=== PATIENT | male | born 1935 | race Caucasian/White ===

== ENCOUNTER 2019-08-18 12:56 | Inpatient (IN) | payer OTHER, MEDICARE ==
[2019-08-18] MEDS ORDERED: NA CHLORIDE 0.9% 500 ML ONE ×2 (13:22→14:38)
--- NOTE | 2019-08-18 13:26 | RAD REPORT ---
EXAM DESCRIPTION: CT - Head Brain Wo Cont - 08/18/2019 1:17 pm CLINICAL HISTORY: Syncope COMPARISON: None. TECHNIQUE: Computed axial tomography of the head was obtained. IV contrast was not requested. All CT scans are performed using dose optimization technique as appropriate and may include automated exposure control or mA/KV adjustment according to patient size. FINDINGS: An intracranial bleed is not seen . The ventricles are normal in caliber. No extra-axial fluid collection is noted. Fluid within the sinuses/ mastoids is not seen. IMPRESSION: No acute intracranial abnormality is seen. If patient's symptoms persist MRI of the bra in would be recommended.
[2019-08-18 13:34] LABS: Absolute Lymphocytes (CBC) 1.3 K/uL (0.7-4.9); Basophils % 0.3 % (0-1.3); Hematocrit 33.9 % (39.6-49.0); MPV 8.4 fL (7.6-11.3); RBC Red Blood Cell Count 3.61 M/uL (4.33-5.43)
[2019-08-18 13:38] LABS: Protime INR 1.07
[2019-08-18 13:49] LABS: Potassium 5.3 mmol/L (3.5-5.1); Thyroid Stimulating Hormone 2.21 uIU/mL (0.360-3.740); Troponin (Emerg Dept Use Only) 0.06 ng/mL (0.0-0.045)
--- NOTE | 2019-08-18 14:08 | ER ---
Nurse's Notes [facility] Name: Koffi Ivory Age: 84 yrs Sex: Male : 1935 Arrival Date: 08/18/2019 Time: 12:58 Bed 2 Private MD: Diagnosis: Bradycardia, unspecified;Syncope and collapse Presentation: 08/18 13:06 Acuity: JES 2 hb 13:06 Presenting complaint: EMS states: pt called due to feeling dizzy this morning, BP on jl7 arrival was 83/49, HR was 29. Transition of care: patient was not received from another setting of care. Onset of symptoms was August 18, 2019. Risk Assessment: Do you want to hurt yourself or someone else? Patient reports no desire to harm self or others. Initial Sepsis Screen: Does the patient meet any 2 criteria? No. Patient's initial sepsis screen is negative. Does the patient have a suspected source of infection? No. Patient's initial sepsis screen is negative. Care prior to arrival: Medication(s) given: Normal saline infusion, 300 mL IV initiated. 20 GA, in the left antecubital area, Glucose check: 275. 13:06 Method Of Arrival: EMS: [facility] jl7 Historical: - Allergies: 13:10 No Known Allergies; jl7 - Home Meds: 13:33 Novolog Sub-Q [Active]; Quinapril HCl Oral [Active]; Tramadol Oral [Active]; tamsulosin jl7 oral oral [Active]; - PMHx: 13:33 Hypertension; Diabetes - IDDM; BPH; jl7 - Immunization history:: Adult Immunizations up to date. - Social history:: Smoking status: Patient/guardian denies using tobacco. - Ebola Screening: : No symptoms or risks identified at this time. - Family history:: not pertinent. - Hospitalizations: : No recent hospitalization is reported. Screenin:00 Abuse screen: Denies threats or abuse. Denies injuries from another. Nutritional jl7 screening: No deficits noted. Tuberculosis screening: No symptoms or risk factors identified. Fall Risk IV access (20 points). Total Toussaint Fall Scale indicates No Risk (0-24 pts). Assessment: 13:00 General: Appears in no apparent distress. uncomfortable, Behavior is calm, cooperative, jl7 appropriate for age. Pain: Denies pain. Neuro: Level of Consciousness is awake, alert, obeys commands, Oriented to person, place, time, situation. Cardiovascular: Patient's skin is warm and dry. Rhythm is sinus bradycardia. Respiratory: Airway is patent Respiratory effort is even, unlabored, Respiratory pattern is regular, symmetrical. GI: No signs and/or symptoms were reported involving the gastrointestinal system. Abdomen is non-distended. : No signs and/or symptoms were reported regarding the genitourinary system. EENT: No signs and/or symptoms were reported regarding the EENT system. Derm: Skin is pink, warm \T\ dry. 14:00 Reassessment: Patient appears in no apparent distress at this time. No changes from jl7 previously documented assessment. Patient and/or family updated on plan of care and expected duration. Pain level reassessed. Patient is alert, oriented x 3, equal unlabored respirations, skin warm/dry/pink. 15:00 Reassessment: Patient appears in no apparent distress at this time. No changes from jl7 previously documented assessment. Patient and/or family updated on plan of care and expected duration. Pain level reassessed. Patient is alert, oriented x 3, equal unlabored respirations, skin warm/dry/pink. Vital Signs: 13:04 BP 108 / 49; Pulse 34; Resp 14; Temp 98.2; Pulse Ox 98% ; Pain 0/10; hb 13:30 BP 120 / 61; Pulse 40; Resp 14 S; Pulse Ox 100% on R/A; jl7 14:10 BP 121 / 43; Pulse 43; Resp 16 S; Pulse Ox 100% on R/A; jl7 14:41 BP 123 / 58; Pulse 49; Resp 14; Pulse Ox 100% on R/A; jl7 15:18 BP 132 / 53; Pulse 51; Resp 16 S; Pulse Ox 100% on R/A; jl7 16:00 BP 139 / 59; Pulse 49; Resp 16 S; Pulse Ox 100% on R/A; jl7 16:30 BP 160 / 63; Pulse 52; Resp 16 S; Pulse Ox 100% on R/A; jl7 17:08 BP 144 / 63; Pulse 54; Resp 16 S; Pulse Ox 100% on R/A; jl7 ED Course: 12:58 Patient arrived in ED. rn 12:58 Con Payne MD is Attending Physician. rn 13:00 Patient has correct armband on for positive identification. Bed in low position. Call jl7 light in reach. Side rails up X 1. quality assurance monitor on. Pulse ox on. NIBP on. Warm blanket given. 13:00 Initial lab(s) drawn, by me, sent to lab. Inserted saline lock: 18 gauge in right jl7 forearm, using aseptic technique. Blood collected. 13:05 Johnnie Vaughan RN is Primary Nurse. jl7 13:05 Arm band placed on. hb 13:06 Triage completed. hb 13:21 CT Head Brain wo Cont In Process Unspecified. EDMS 14:07 Gerard Adams MD is Hospitalizing Provider. rn 14:08 XRAY Chest (1 view) In Process Unspecified. EDMS 17:09 No provider procedures requiring assistance completed. Patient admitted, IV remains in jl7 place. intact, No redness/swelling at site. Administered Medications: 13:27 Drug: NS 0.9% 500 ml Route: IV; Rate: bolus; Site: right antecubital; hb 14:15 Follow up: Response: No adverse reaction; IV Status: Completed infusion; IV Intake: jl7 500ml 14:15 Drug: Atropine 0.5 mg Route: IVP; Site: right forearm; jl7 14:41 Follow up: Response: No adverse reaction jl7 14:41 Drug: NS 0.9% 500 ml Route: IV; Rate: bolus; Site: right forearm; jl7 15:15 Follow up: IV Status: Completed infusion; IV Intake: 500ml jl7 14:41 Drug: Aspirin Chewable Tablet 324 mg Route: PO; jl7 15:00 Follow up: Response: No adverse reaction jl7 Intake: 14:15 IV: 500ml; Total: 500ml. jl7 15:15 IV: 500ml; Total: 1000ml. jl7 Outcome: 14:08 Decision to Hospitalize by Provider. rn 17:40 Admitted to Tele accompanied by tech, via wheelchair, room 426, with chart, Report jl7 called to SHEBA Jha 17:40 Condition: stable 17:40 Discharge instructions given to patient, Instructed on the need for admit, Demonstrated understanding of instructions. 17:41 Patient left the ED. jl7 Signatures: Dispatcher [employer] EDCon Gonzalez MD MD rn Baxter, Heather, RN RN hb Johnnie Vaughan, SHEBA RN jl7
--- NOTE | 2019-08-18 14:08 | EDPHYS ---
Physician Documentation [facility] Name: Koffi Ivory Age: 84 yrs Sex: Male : 1935 Arrival Date: 08/18/2019 Time: 12:58 Bed 2 Private MD: ED Physician Con Payne HPI: 08/18 14:01 This 84 yrs old Male presents to ER via EMS with complaints of syncope. rn 14:01 The patient has experienced syncope. Onset: The symptoms/episode began/occurred just rn prior to arrival. Duration: This was a single episode. Context: occurred at home, occurred while the patient was at rest, Just prior to the episode the patient experienced lightheadedness. Associated injury: The patient did not suffer any apparent associated injury. Current symptoms: Currently, the patient is not experiencing any symptoms. The patient has not experienced similar symptoms in the past. Reports had syncopal episode, at rest, feels generalized weakness. Reports last few weeks several episodes daily when has bilateral shoulder pain/discomfort, has to manager recovery and lasts for a few minutes. No trauma. No fever/vomiting/chest pain/sob. Per EMS, initial heart rate around 30, regular, and low BP, now improved with 500cc bolus. . Historical: - Allergies: 13:10 No Known Allergies; jl7 - Home Meds: 13:33 Novolog Sub-Q [Active]; Quinapril HCl Oral [Active]; Tramadol Oral [Active]; tamsulosin jl7 oral oral [Active]; - PMHx: 13:33 Hypertension; Diabetes - IDDM; BPH; jl7 - Immunization history:: Adult Immunizations up to date. - Social history:: Smoking status: Patient/guardian denies using tobacco. - Ebola Screening: : No symptoms or risks identified at this time. - Family history:: not pertinent. - Hospitalizations: : No recent hospitalization is reported. ROS: 14:02 Constitutional: Negative for fever, chills, and weight loss, Eyes: Negative for injury, rn pain, redness, and discharge, Neck: Negative for injury, pain, and swelling, Cardiovascular: Negative for chest pain, palpitations, and edema, Respiratory: Negative for shortness of breath, cough, wheezing, and pleuritic chest pain, Abdomen/GI: Negative for abdominal pain, nausea, vomiting, diarrhea, and constipation, MS/Extremity: Negative for injury and deformity, Skin: Negative for injury, rash, and discoloration, Neuro: Negative for headache, numbness, tingling, and seizure. Exam: 14:02 Constitutional: This is a well developed, well nourished patient who is awake, alert, rn and in no acute distress. Head/Face: Normocephalic, atraumatic. ENT: MMM Neck: Trachea midline, no thyromegaly or masses palpated, and no cervical lymphadenopathy. Supple, full range of motion without nuchal rigidity, or vertebral point tenderness. No Meningismus. Cardiovascular: Regular, bradycardic, no murmur Respiratory: No increased work of breathing, no retractions or nasal flaring. Abdomen/GI: soft, non-tender MS/ Extremity: Pulses equal, no cyanosis. Neurovascular intact. Full, normal range of motion. Equal circumference. Neuro: Awake and alert, GCS 15, oriented to person, place, time, and situation. Cranial nerves II-XII grossly intact. Motor strength 5/5 in all extremities. Sensory grossly intact. Cerebellar exam normal. Vital Signs: 13:04 BP 108 / 49; Pulse 34; Resp 14; Temp 98.2; Pulse Ox 98% ; Pain 0/10; hb 13:30 BP 120 / 61; Pulse 40; Resp 14 S; Pulse Ox 100% on R/A; jl7 14:10 BP 121 / 43; Pulse 43; Resp 16 S; Pulse Ox 100% on R/A; jl7 14:41 BP 123 / 58; Pulse 49; Resp 14; Pulse Ox 100% on R/A; jl7 15:18 BP 132 / 53; Pulse 51; Resp 16 S; Pulse Ox 100% on R/A; jl7 16:00 BP 139 / 59; Pulse 49; Resp 16 S; Pulse Ox 100% on R/A; jl7 16:30 BP 160 / 63; Pulse 52; Resp 16 S; Pulse Ox 100% on R/A; jl7 17:08 BP 144 / 63; Pulse 54; Resp 16 S; Pulse Ox 100% on R/A; jl7 MDM: 12:58 Patient medically screened. rn 14:02 Differential Diagnosis: cardiac arrhythmia, idiopathic syncope, vasovagal episode. Data rn reviewed: vital signs, nurses notes, lab test result(s), EKG, radiologic studies, CT scan, plain films, and as a result, I will admit patient. Counseling: I had a detailed discussion with the patient and/or guardian regarding: the historical points, exam findings, and any diagnostic results supporting the discharge/admit diagnosis, lab results, radiology results, the need for further work-up and treatment in the hospital. Response to treatment: the patient's symptoms have markedly improved after treatment, the patient is now symptom free, and as a result, I will discharge patient. ED course: Pt asymptomatic, sitting upright and smiling/having conversation with family. Will admit for syncope and bradycardia. No pauses/blocks on ECG that warrants immediate pacemaker, asymptomatic and steady in 40s. Has all of his meds in baggies unlabeled, unsure if medication induced, will put in for further eval, serial trop, cardiology consult and medication reconciliation to Dr. Adams. . 08/18 12:59 Order name: Magnesium; Complete Time: 13:55 rn 08/18 12:59 Order name: Basic Metabolic Panel; Complete Time: 13:55 rn 08/18 12:59 Order name: CBC with Diff; Complete Time: 13:47 rn 08/18 12:59 Order name: NT PRO-BNP; Complete Time: 13:55 rn 08/18 12:59 Order name: Troponin (emerg Dept Use Only); Complete Time: 13:55 rn 08/18 12:59 Order name: TSH; Complete Time: 13:55 rn 08/18 13:08 Order name: PT-INR; Complete Time: 13:55 rn 08/18 13:08 Order name: Ptt, Activated; Complete Time: 13:55 rn 08/18 15:48 Order name: CBC with Automated Diff EDVT 08/18 15:48 Order name: CBC with Automated Diff EDMS 08/18 15:48 Order name: Comprehensive Metabolic Panel EDVT 08/18 15:48 Order name: Comprehensive Metabolic Panel EDVT 08/18 15:48 Order name: Troponin I EDVT 08/18 15:48 Order name: Troponin I EDVT 08/18 12:59 Order name: XRAY Chest (1 view); Complete Time: 14:31 rn 08/18 12:59 Order name: EKG; Complete Time: 13:01 rn 08/18 12:59 Order name: Cardiac monitoring; Complete Time: 13:08 rn 08/18 12:59 Order name: EKG - Nurse/Tech; Complete Time: 13:09 rn 08/18 12:59 Order name: IV Saline Lock; Complete Time: 13:10 rn 08/18 12:59 Order name: Labs collected and sent; Complete Time: 13:10 rn 08/18 12:59 Order name: O2 Per Protocol; Complete Time: 13:10 rn 08/18 12:59 Order name: CT Head Brain wo Cont; Complete Time: 13:47 rn 08/18 15:48 Order name: CONS Pharmacy Consult EDVT 08/18 15:48 Order name: Heart Healthy EDVT 08/18 15:48 Order name: Troponin I EDVT 08/18 15:48 Order name: Troponin I EDVT 08/18 12:59 Order name: O2 Sat Monitoring; Complete Time: 13:10 rn Administered Medications: 13:27 Drug: NS 0.9% 500 ml Route: IV; Rate: bolus; Site: right antecubital; hb 14:15 Follow up: Response: No adverse reaction; IV Status: Completed infusion; IV Intake: jl7 500ml 14:15 Drug: Atropine 0.5 mg Route: IVP; Site: right forearm; jl7 14:41 Follow up: Response: No adverse reaction jl7 14:41 Drug: NS 0.9% 500 ml Route: IV; Rate: bolus; Site: right forearm; jl7 15:15 Follow up: IV Status: Completed infusion; IV Intake: 500ml jl7 14:41 Drug: Aspirin Chewable Tablet 324 mg Route: PO; jl7 15:00 Follow up: Response: No adverse reaction jl7 Disposition: 08/18/19 14:08 Hospitalization ordered by Gerard Adams for Inpatient Admission. Preliminary diagnosis are Bradycardia, unspecified, Syncope and collapse. - Bed requested for Telemetry/MedSurg (Inpatient). - Status is Inpatient Admission. jl7 - Condition is Stable. - Problem is new. - Symptoms have improved. UTI on Admission? No Signatures: Dispatcher [employer] [facility] Marleny Vizcaino RN RN dw Nieto, Roman, MD MD rn Baxter, Heather, RN RN hb Leal, Jahala RN RN jl7 Corrections: (The following items were deleted from the chart) 14:04 14:01 Reports had syncopal episode, at rest, feels generalized weakness. . rn rn 16:58 14:08 Hospitalization Ordered by Gerard Adams MD for Inpatient Admission. Preliminary dw diagnosis is Bradycardia, unspecified; Syncope and collapse. Bed requested for Telemetry/MedSurg (Inpatient). Status is Inpatient Admission. Condition is Stable. Problem is new. Symptoms have improved. UTI on Admission? No. rn 17:41 16:58 08/18/2019 14:08 Hospitalization Ordered by Gerard Adams MD for Inpatient jl7 Admission. Preliminary diagnosis is Bradycardia, unspecified; Syncope and collapse. Bed requested for Telemetry/MedSurg (Inpatient). Status is Inpatient Admission. Condition is Stable. Problem is new. Symptoms have improved. UTI on Admission? No. dw
--- NOTE | 2019-08-18 14:12 | RAD REPORT ---
EXAM DESCRIPTION: Lisa Single View08/18/2019 1:59 pm CLINICAL HISTORY: Bradycardia COMPARISON: none FINDINGS: The lungs appear clear of acute infiltrate. The heart is normal size IMPRESSION: No acute abnormalities displayed
[2019-08-18] MEDS ORDERED: ATROPINE SULF 1 MG/10 ML SYR IV ONE (14:17)
[2019-08-18] MEDS ORDERED: ASPIRIN 81 MG CHEWABLE TABLET ONE (14:38)
[2019-08-18] MEDS ORDERED: ONDANSETRON 4 MG/2 ML VIAL IV PRN (15:43)
[2019-08-18] MEDS ORDERED: MORPHINE 2 MG/ML SYR IV PRN (15:43)
[2019-08-18] MEDS ORDERED: ALBUTEROL 2.5 MG/3 ML NEB SOL NEB PRN (15:43)
[2019-08-18] MEDS ORDERED: GLUCAGON 1 MG/VIAL IM PRN (15:47)
[2019-08-18] MEDS ORDERED: HYDRALAZINE HCL 20 MG/ML VIAL IV PRN (15:47)
[2019-08-18] MEDS ORDERED: D50W 25 GM/50 ML SYRINGE/VIAL IV PRN (15:47)
[2019-08-18] MEDS: NA CHLORIDE 0.9% 1,000 ML IV SCH ×2 (16:00→18:45)
--- NOTE | 2019-08-18 16:17 | EKG ---
Test Date: 2019-08-18 Test Time: 13:39:07 Rd Lab Technician: MEASUREMENT RESULTS: Intervals: Rate: 33 WY: 208 QRSD: 150 QT: 488 QTc: 361 [place]: P: W[place]: 208 QRS: -43 T: 41 INTERPRETIVE STATEMENTS: Marked sinus bradycardia Left axis deviation Left bundle branch block Abnormal ECG No previous ECG available for comparison Electronically Signed On 08-18-19 16:17:10 CURING PRESS OPERATOR by Deandre Quintana
--- NOTE | 2019-08-18 16:40 | P.PN ---
Date of Service: 08/18/19 pt with htn , dm , ckd on coreg admitted for near syncope with bradycardia down to 34 . HR improving now with IVF -seen by cardiology , plan for hold coreg , tele monitoring , IVF NS
[2019-08-18 18:13] VITALS: BMI 28.9
[2019-08-18] MEDS: INSULIN -REGULAR HUMAN 50 UNIT/0.5 ML ML SQ SCH ×2 (18:45→21:38)
--- NOTE | 2019-08-18 20:17 | CON ---
Chief Complaint: Dizziness. History Of Present Illness: Mr. Ivory is 84. He takes medicines for diabetes and blood pressure. Radha waller has never had a pacemaker, never had myocardial infarction, stroke, vascular disease, vascular inte rventions, stents, or heart surgery. He has not felt dizzy before. Apparently, his family believes he was told to stop taking carvedilol, a medicine he takes twice a day, but he is here from [place], no rmally lives in [place] and there may have been some confusion about medicines, but he insists he took carvedilol this morning and it was after that, that he started feeling dizzy. His heart rate was 34 with sinus bradycardia, but there is a borderline first-degree AV block and left bundle, so he trevor soriano has conduction system disease. Over the last few hours, his heart rate is picked up. It is now 50. It was 34 when he had his EKG earlier today. He has never used tobacco or alcohol or illegal d rugs. He has used some alcohol in moderation. Never tobacco. Physical Examination: General: He is alert, oriented, pleasant, not in distress. Lungs: Clear. Cardiac: Within normal limits, except for bradycardia. Abdomen: Soft. Extremities: No cyanosis, clubbing, or edema. Distal pulses palpable. Impression: The patient should no longer be on a beta-que. I believe he will eventually very li jessica require a pacemaker with all of his conduction system problems, but he should not be on beta-blo ckers, digoxin, diltiazem, verapamil, clonidine for certain. If his heart rate picks up and he has n o pauses overnight, he can be discharged and we can attribute his bradycardia and dizziness to the carvedilol, which apparently should have been s topped, but he took nonetheless. ARMANDO/RICK Voice ID: [id number] Report ID: [id number]
[2019-08-18] MEDS ORDERED: AMITRIPTYLINE 25 MG TAB PO SCH (21:00)
[2019-08-18] MEDS ORDERED: FAMOTIDINE 20 MG TAB PO SCH (21:00)
[2019-08-18 22:20] LABS: Urine Appearance CLEAR; Urine Bilirubin NEGATIVE (NEG); Urine Blood NEGATIVE (NEG); Urine Color YELLOW; Urine Glucose 3+ (NEG); Urine Protein NEGATIVE (NEG); Urine Urobilinogen 0.2 mg/dL (0.2-1.0)
[2019-08-18] MEDS ORDERED: GABAPENTIN 100 MG CAP PO ONE (22:25)
[2019-08-18 22:29] LABS: Urine Microscopic Reflex NO UMIC
[2019-08-18] MEDS ORDERED: TRAZODONE 50 MG TABLET PO ONE (22:30)
[2019-08-19] MEDS: ROPINIROLE HCL 1 MG TAB PO PRN ×2 (02:05→11:44)
--- NOTE | 2019-08-19 02:51 | HP ---
Date of Admission: 08/18/2019 Presenting Complaint: Syncope. History Of Present Illness: Mr. Cachorro Machuca is an 84-year-old male with history of hypert ension, diabetes mellitus type 2, relatively controlled, hyperlipidemia, who presented today after no ceasar with near-syncope while walking with his friend. The patient did not have any fall. He was able to lie himself to the ground. He denies any nausea, vomiting, or chest pain. The patient states si nce yesterday he has been having increasing weakness along with heaviness in his legs. Today, after he woke up and has taken his pills and while ambulating he has felt very tired and appears he was saida gging himself. This was prior to onset of the weakness while he was visiting his friend later in the day. The patient has recently traveled to the area to visit his brother. He brought his medication s in a pill bag. The patient states he takes his medicine as prescribed. He denies any recent fong e in his medications. States he takes Norvasc as well as Coreg, amitriptyline, and quinapril. He de nies any excess medication intake. He states his medications were changed, last acid changer a year a go. On arrival in the ED, he was noted with bradycardia with heart rate down to 34. He was given IV fluids and his heart rate has improved to 45 to 50 now. His dizziness seems to have improved also. He feels hungry now. He denies any nausea or vomiting. Past Medical History: Hypertension, diabetes mellitus, CKD stage 3, unknown baseline, follows with h is doctors in [place], history of BPH. Home Medications: Include quinapril 40 mg, Coreg 3.125 b.i.d., amitriptyline on short dose, as well as amlodipine 10 mg daily. Allergies: NO KNOWN DRUG ALLERGY. Social History: Patient is a former smoker, quit at age 20, no history of alcohol, tobacco, or illic it drug use. He resides with the family in [place] and only visit extended family in this area. Review of Systems: All systems reviewed x14, negative. Family History: Noncontributory in this 84-year-old male. Physical Examination: Current vitals: Blood pressure of 135/71, pulse of 50, respiratory rate of 18, O2 saturation is 100% on room air, temperature afebrile. General: Elderly male, appears as stated age. Head: Atraumatic, normocephalic. Eyes: Pupils equal and reactive to light. Chloride conjunctivae. Moist oral mucosa. Neck: No JVD. No carotid bruit. Respiratory: Good air entry. No crepitation. Cardiovascular: S1, S2. Slightly bradycardic. GI: Abdomen is full, soft, nontender. Extremities: No pedal edema. No calf tenderness. Neuro: Patient is alert, oriented. Cranial nerves 2 through 12 grossly intact. Laboratory Data: EKG shows sinus spencer, but no ST-segment changes. WBC 10.5, hemoglobin is 11.9, pl atelet 272. INR 1.07, potassium 5.3, CO2 23, creatinine 1.86, glucose 261, magnesium 2. ProBNP 524. TSH 2.2. Rapid troponin I 0.06. Impression: 1.Symptomatic bradycardia. 2.Syncope, resolved. 3.Hypertension. 4.Hyperkalemia. 5.Chronic kidney disease stage 3 with possible acute renal failure from near syncope and volume depl etion with hypoperfusion from bradycardia. 6.Diabetes mellitus, slightly uncontrolled. Plan: 1.We will admit patient to telemetry unit for symptomatic bradycardia. We will consult Cardiology. Patient is seen in the ED by Dr. Quintana. We will plan to monitor off Coreg for now. If improving h eart rate, then patient can be safely discharged without need for intervention. We will place patien t on regular monitoring and we will follow serial troponin. 2.Hypertension. Continue amlodipine. Hold Coreg. We will reduce dose of quinapril given elevated potassium. 3.Acute renal failure with possible baseline CKD as per the patient's report. We will do gentle IV hydration and follow. Hold quinapril for now. 4.IV hydralazine as needed for blood pressure control. 5.Diabetes mellitus with insulin sliding scale with NovoLog with regular insulin. 6.DVT prophylaxis, subcutaneous heparin. 7.Advanced directives. Patient wishes to be full code. Total time spent in review of record, discussion with ED physician as well as Cardiology, Dr. Quintana, and evaluation and discussion of prognosis and plan with patient, greater than 55 minutes. EO/MODL Voice ID: [id number]
[2019-08-19] MEDS ORDERED: TRAMADOL HCL 50 MG TAB PO PRN (04:05)
[2019-08-19 06:31] LABS: Basophils % 0.5 % (0-1.3); Hematocrit 34.6 % (39.6-49.0); Lymphocytes % 17.1 % (15.3-44.8); MPV 8.2 fL (7.6-11.3); RBC Red Blood Cell Count 3.67 M/uL (4.33-5.43)
[2019-08-19 07:04] LABS: Albumin 3.4 g/dL (3.4-5.0); Bilirubin Total 0.2 mg/dL (0.2-1.0); Potassium 4.9 mmol/L (3.5-5.1); Protein, Total 5.9 g/dL (6.4-8.2); Troponin I 0.09 ng/mL (0.0-0.045)
[2019-08-19] MEDS: INSULIN -REGULAR HUMAN 50 UNIT/0.5 ML ML SQ SCH ×3 (08:36→16:28)
[2019-08-19 09:52] VITALS: O2SAT 97
[2019-08-19] MEDS ORDERED: ROPINIROLE HCL 1 MG TAB PO PRN (11:44)
[2019-08-19] MEDS: NA CHLORIDE 0.9% 1,000 ML IV SCH (15:05)
--- NOTE | 2019-08-19 15:24 | PN ---
The patient was admitted on 08/18/[address] Adams and was seen by Dr. Quintana because of bradycar demond and left bundle-branch block. Initial heart rate was 30. The patient had came in with syncope. Overnight, his carvedilol that he was taking at home was held. His heart rate has been in the 60s s dillon the hydration. No further syncope. He is asymptomatic this morning. He had a slightly elevate d troponin of 0.06 consistent with his severe bradycardia and history of hypertension. The patient a ctually lives in [place] and is planning to go back home soon. From my standpoint, there is an echocard iogram pending and if that is negative, he can go home today whenever it is okay with Dr. Adams. Definitely, no carvedilol, no beta-blockers or calcium blockers considering his left bundle-branch bl ock and his bradycardia. He should have an outpatient event monitor and a stress test with his cardi ologist in [place]. LEON/RICK Voice ID: [id number] Report ID: [id number]
[2019-08-19 16:23] VITALS: TEMP 97.6
--- NOTE | 2019-08-19 16:32 | P.DS ---
Admission Date: 08/18/19 Discharge Date: 08/19/19 Disposition: ROUTINE DISCHARGE Discharge Condition: GOOD Brief History of Present Illness: patient admitted for syncope , see full [facility] Hospital Course: patient with hx of HTN ,DM , BPH on coreg admitted after developing progressive weakness while visiting family in the family . He developed syncope with progressive symptoms . On presentation he was very bradycardia but in regular rhythm. He was evaluated by cardiology and felt bradycardia was related to Coreg use which was then held . His HR continue to improved to the 60s now . His dizziness and weakness has resolved . His BP became elevated and Imdur added to BP regime . He will follow up with his PCP at [place] Vital Signs/Physical Exam: Temp Pulse Resp BP Pulse Ox 97.6 F 60 18 189/76 H 100 08/19/19 16:00 08/19/19 16:00 08/19/19 16:00 08/19/19 16:00 08/19/19 16:00 General: Alert, In no apparent distress, Oriented x3 (elderly male , ) HEENT: Atraumatic, Normocephalic, PERRLA, Mucous membr. moist/pink Neck: Supple, JVD not distended, No Thyromegaly Cardiovascular: No edema, Normal pulses Gastrointestinal: Normal bowel sounds, Soft and benign, Non-distended, No tenderness Musculoskeletal: No clubbing, No swelling Integumentary: No breakdown, No significant lesion Neurological: Normal gait, Normal speech, Normal strength at 5/5 x4 extr Laboratory Data at Discharge: WBC 11.6 K/uL (4.3-10.9) H 08/19/19 06:15 Hgb 11.9 g/dL (13.6-17.9) L 08/19/19 06:15 Hct 34.6 % (39.6-49.0) L 08/19/19 06:15 Plt Count 250 K/uL (152-406) 08/19/19 06:15 PT 12.6 SECONDS (9.5-12.5) H 08/18/19 13:06 INR 1.07 08/18/19 13:06 APTT 27.1 SECONDS (24.3-36.9) 08/18/19 13:06 Sodium 143 mmol/L (136-145) 08/19/19 06:15 Potassium 4.9 mmol/L (3.5-5.1) 08/19/19 06:15 BUN 31 mg/dL (7-18) H 08/19/19 06:15 Creatinine 1.47 mg/dL (0.55-1.3) H 08/19/19 06:15 Glucose 299 mg/dL (74-106) H 08/19/19 06:15 Magnesium 2.0 mg/dL (1.8-2.4) 08/18/19 13:06 Total Bilirubin 0.2 mg/dL (0.2-1.0) 08/19/19 06:15 AST 24 U/L (15-37) 08/19/19 06:15 ALT 30 U/L (12-78) 08/19/19 06:15 Alkaline Phosphatase 84 U/L (45-117) 08/19/19 06:15 Troponin I 0.09 ng/mL (0.0-0.045) H 08/19/19 06:15 Home Medications: Amlodipine Besylate 1 tab PO DAILY 08/18/19 Atorvastatin Calcium [Lipitor] 1 tab PO BEDTIME 08/18/19 Gabapentin 1 tab PO SEECOM 08/18/19 Insulin Aspart [Novolog] See Protocol SQ BID 08/18/19 Insulin Glargine Human [Lantus*] See Protocol SQ BEDTIME 08/18/19 Perphenazine/Amitriptyline HCl [Perphen-Amitrip 2 mg-25 mg Tab] 0.25 tab PO DAILY 08/18/19 Quinapril HCl 1 tab PO DAILY 08/18/19 Ropinirole HCl [Requip] 1 tab PO DAILY 08/18/19 Tamsulosin [Flomax*] 1 tab PO DAILY 08/18/19 Trazodone [Desyrel*] 1 tab PO BEDTIME PRN PRN 08/18/19 carvediloL [Carvedilol] 1 tab PO DAILY 08/18/19 traMADol HCL [Ultram*] 1 tab PO Q4HP PRN 08/18/19 Isosorbide Mononitrate [Isosorbide Mononitrate ER] 30 mg PO DAILY #30 tab.er.24h 08/19/19 New Medications: Isosorbide Mononitrate [Isosorbide Mononitrate ER] 30 mg PO DAILY #30 tab.er.24h Patient Discharge Instructions: follow with your PCP in [place] on return. - return to ER if feeling more tired , new weakness or dizziness Diet: Low sodium Activity: Ad melina Time spent managing pt's care (in minutes): 35
--- NOTE | 2019-08-20 08:21 | ECHO ---
HEIGHT: 5 ft 10 in WEIGHT: 201 lb 0 oz DATE OF STUDY: 08/19/[address]: Gerard Adams MD 2-DIMENSIONAL: YES M.MODE: YES DOPPLER: YES COLOR FLOW: YES TDS: NO PORTABLE: NO DEFINITY: NO BUBBLE STUDY: NO DIAGNOSIS: CEREBRAL VASCULAR ACCIDENT, RULE OUT VEGETATION CARDIAC HISTORY: CATHERIZATION: NO SURGERY: NO PROSTHETIC VALVE: NO PACEMAKER: NO MEASUREMENTS (cm) DIASTOLIC (NORMALS) SYSTOLIC (NORMALS) IVSd 1.2 (0.6-1.2) LA Diam 3.8 (1.9-4.0) LVEF 64% LVIDd 4.9 (3.5-5.7) LVIDs 3.1 (2.0-3.5) %FS 35% LVPWd 1.3 (0.6-1.2) Ao Diam 3.4 (2.0-3.7) 2 DIMENSIONAL ASSESSMENT: RIGHT ATRIUM: NORMAL LEFT ATRIUM: NORMAL RIGHT VENTRICLE: NORMAL LEFT VENTRICLE: NORMAL TRICUSPID VALVE: NORMAL MITRAL VALVE: NORMAL PULMONIC VALVE: NORMAL AORTIC VALVE: SCLEROSIS PERICARDIAL EFFUSION: NONE AORTIC ROOT: NORMAL LEFT VENTRICULAR WALL MOTION: PARADOXICAL SEPTUM. DOPPLER/COLOR FLOW: MILD TRICUSPID REGURGITATION. COMMENTS: MILD TRICUSPID REGURGITATION. PARADOXICAL SEPTUM CONSISTENT WITH LEFT BUNDLE BRANCH BLOCK. NORMAL LEFT VENTRICULAR SIZE AND EJECTION FRACTION. AORTIC SCLEROSIS WITH NO STENOSIS. TECHNOLOGIST: Yudith MAGAÑA
[2019-08-20 19:39] VITALS: BP 150/80
== END 2019-08-19 17:26 | disposition home or self-care (01) | DRG 309 ==
LOC: ER 12:56 → ERHOLD 15:44 → 4TH 17:34
PROVIDERS: ADMIT Internal Medicine; ATTEND Internal Medicine
DX: R00.1 Bradycardia, unspecified (principal); N17.9 Acute kidney failure, unspecified; R55 Syncope and collapse; E78.5 Hyperlipidemia, unspecified; E87.5 Hyperkalemia; I12.9 Hypertensive chronic kidney disease with stage 1 through stage 4 chronic kidney disease, or unspecified chronic kidney disease; E11.22 Type 2 diabetes mellitus with diabetic chronic kidney disease; N18.3 Chronic kidney disease, stage 3 (moderate); I44.0 Atrioventricular block, first degree; I44.7 Left bundle-branch block, unspecified; Z87.891 Personal history of nicotine dependence
CPT/HCPCS: 36415; 70450; 71045; 80048; 80053; 81003; 82947; 83735; 83880; 84443; 84484; 85025; 85610; 85730; 93005; 93306; 96361; 96374; 99285; J0360; J2270; J7030; J7040